=== PATIENT | male | born 1975 | race Caucasian/White ===

== ENCOUNTER 2016-05-13 22:14 | Emergency (ER) | payer SELFPAY ==
[2016-05-13 22:10] LABS: BASOPHILS 0.2 %; BASOPHILS ABSOLUTE 0.03 10/3/uL (0.0-0.16); EOSINOPHILS 0.1 %; EOSINOPHILS ABSOLUTE 0.02 10/3/uL (0.0-0.53); HEMATOCRIT 44.2 % (40.0-51.0); HEMOGLOBIN 15.9 g/dL (13.6-17.8); IMMATURE GRANULOCYTES 0.4 %; IMMATURE GRANULOCYTES ABSOLUTE 0.06 10/3/uL (0.0-0.11); LYMPHOCYTES ABSOLUTE 3.16 10/3/uL (0.67-4.30); MEAN CORPUSCULAR HEMOGLOB 31.3 pg (26.0-34.0); MEAN PLATELET VOLUME 10.9 fL (9.2-13.0); MONOCYTES ABSOLUTE 1.57 10/3/uL (0.21-1.20); NEUTROPHILS 69.3 %; NEUTROPHILS ABSOLUTE 10.93 10/3/uL (2.02-8.40); PLATELET COUNT 311 10/3/uL (150-400); RBC DISTRIBUTION WIDTH 12.8 % (12.0-16.0); RED CELL COUNT 5.08 10/6/uL (4.7-6.1); WHITE BLOOD CELLS 15.8 10/3/uL (4.5-10.5)
[2016-05-13 22:12] LABS: MANUAL DIFF NO %
[2016-05-13 22:20] LABS: PARTIAL THROMBO TIME 28.6 SEC (22.5-37.2); PROTIME (NOT ORD) 13.5 SEC (12.0-14.5)
[2016-05-13 22:26] LABS: A/G RATIO 0.9 (0.7-1.9); ALCOHOL 39 MG/DL (0); ALKALINE PHOSPHATASE 78 U/L (45-117); BUN (BLOOD UREA NITROGEN) 9 MG/DL (6-23); CALCIUM, SERUM 9.4 MG/DL (8.5-10.4); CHLORIDE, SERUM 108 MMOL/L (96-112); CO2 (CARBON DIOXIDE) 17 MMOL/L (24-34); CREATININE 1.12 MG/DL (0.70-1.30); GFR AFRICAN AMERICAN 96 ML/MIN (>=60); GFR NON AFRICAN AMERICAN 83 ML/MIN (>=60); GLOBULIN 4.7 G/DL (2.5-4.1); GLUCOSE, SERUM 104 MG/DL (60-99); SGPT(ALT) 80 U/L (5-65); SODIUM, SERUM 142 MMOL/L (135-148); TOTAL BILIRUBIN 0.5 MG/DL (0-1.2); TOTAL PROTEIN 8.7 G/DL (6.0-8.5)
[2016-05-13 22:27] LABS: ACETAMINOPHEN LEVEL (TYLENOL) < 2.0 MCG/ML (10.0-20.0); DIRECT BILIRUBIN < 0.1 MG/DL (0.0-0.4); INDIRECT BILIRUBIN(NOT ORDER) 0.4 MG/DL (0.1-0.9); SALICYLATE < 1.7 MG/DL (-); SGOT(AST) 69 U/L (5-40)
[2016-05-13 22:48] LABS: ASCORBIC ACID (UR NOT ORDER) NEG (NEG); BILIRUBIN, URINE NEGATIVE (NEG); ER URINALYSIS TAT 0 Hrs 32 Mins; KETONE, URINE TRACE MG/DL (NEG); LEUKOCYTE ESTERASE(NOT OR NEG (NEG); NITRITE (URINE) NEG (NEG); WBC (NOT ORDERED) (RFLEX) 1 (0-5)
[2016-05-13 23:01] LABS: AMPHETAMINES (NOT ORD) POS (NEG); BARBITURATES (NOT ORDERED NEG (NEG); BENZODIAZEPINES (NOT ORD) NEG (NEG); CANNABINOIDS (THC) NEG (NEG); COCAINE (NOT ORDERED) NEG (NEG); OPIATES POS (NEG); PHENCYCLIDINE(PCP) NEG (NEG); TRICYCLICS NEG (NEG)
[2016-05-19] MEDS ORDERED: *DENIES (17:42)
== END 2016-05-14 02:15 | disposition home or self-care (01) ==
LOC: ER 22:14
PROVIDERS: Nurse Practitioner
PROC: 0XQBXZZ Repair Right Elbow Region, External Approach (ICD-10-PCS; principal; 2016-05-13)
DX: S52.571A Other intraarticular fracture of lower end of right radius, initial encounter for closed fracture (principal); S52.611A Displaced fracture of right ulna styloid process, initial encounter for closed fracture; S09.90XA Unspecified injury of head, initial encounter; S30.811A Abrasion of abdominal wall, initial encounter; S00.81XA Abrasion of other part of head, initial encounter; S90.511A Abrasion, right ankle, initial encounter; Z86.19 Personal history of other infectious and parasitic diseases; Z88.0 Allergy status to penicillin; V03.99XA Pedestrian with other conveyance injured in collision with car, pick-up truck or van, unspecified whether traffic or nontraffic accident, initial encounter
CPT/HCPCS: 36415; 70450; 70486; 71010; 72125; 73110-RT; 73610-RT; 74176; 80053; 80305; 80307; 81001; 82248; 85025; 85610; 85730; 86850; 86900; 86901; 90714; 99285; J1200